=== PATIENT | male | born 1950 | race Caucasian/White ===

== ENCOUNTER 2016-10-02 10:22 | Outpatient (CLI) | payer OTHER ==
[2016-02-23 01:23] VITALS: BMI 25.8
[2016-10-02 10:36] LABS: BILIRUBIN,URINE Negative (NEGATIVE); KETONES,URINE Negative (NEGATIVE); LEUKOCYTE ESTERASE ,URINE Negative (NEGATIVE); NITRITE,URINE Negative (NEGATIVE); PH,URINE 5.5 (5-9); PROTEIN,URINE Trace (NEGATIVE); URINE, BLOOD Negative (NEGATIVE)
[2016-10-02 10:39] LABS: ADD URINE MICROSCOPIC YES
== END 2016-10-02 10:23 | disposition home or self-care (01) ==
LOC: LAB 10:22
PROVIDERS: ATTEND Internal Medicine
DX: R31.9 Hematuria, unspecified (principal); Z85.46 Personal history of malignant neoplasm of prostate
CPT/HCPCS: 81001

== ENCOUNTER 2017-07-08 14:15 | Emergency (ER) ==
[2017-07-08 14:21] VITALS: BP 131/86; TEMP 97.9; BMI 25.9
[2017-07-08] MEDS: DILAUDID 1 MG/ML SYRINGE ONE (19:37)
[2017-07-08] MEDS: IMITREX SUBCUT ONE (19:44)
[2017-07-08] MEDS: IMITREX SUBCUT STA (19:44)
--- NOTE | 2017-07-08 20:10 | ED.PDOC ---
General ED Provider: Dr. CORINNA KEITH Chief Complaint: Headache Stated Complaint: Headache. Persisted for several days. In ER last night and given Dilaudid with minimal releif after failure with Toradol. Came back to ER today for persistent headach. Currently Headache is better Time Seen by Physician: 18:15 Mode of Arrival: Walk-In Information Source: Patient Exam Limitations: No limitations Primary Care Provider: KOTA GARCIA Referred to ED by: PCP Seen Within Last 72 Hours for Same Complaint By: ED Nursing and Triage Documentation Reviewed and Agree: Yes Reviewed sepsis parameters & appropriate labs ordered?: Yes System Inflammatory Response Syndrome: Not Applicable Sepsis Protocol: For patient's 13 years and over: Temp is 96.8 and below OR 101 and greater Pulse >90 BPM Resp >20/minute Acutely Altered Mental Status Are patient's symptoms suggestive of a new infection, such as: -Pneumonia -Skin, Soft Tissue -Endocarditis -UTI -Bone, Joint Infection -Implantable Device -Acute Abdominal Infection -Wound Infection -Meningitis -Blood Stream Catheter Infection -Unknown System Inflammatory Response Syndrome: Not Applicable Neurological Complaint Exam - Headache Complaint/Exam Onset: Gradual (This time following tooth extraction) Symptoms Are: Still present Timing: Constant Episodes Lasting: Hours Worst Headache Ever: No Initial Severity: Moderate Current Severity: Mild Location: Right, Left, Frontal, Temporal Character: Reports: Throbbing, Pressure Aggravating: Reports: Exertion, Position change Alleviating: Reports: Medications, Position change Associated Signs and Symptoms: Reports: Dizziness, Neck pain. Denies: Nausea, Vomiting, Sinus pressure, Neck stiffness, Decreased LOC Related History: Reports: Similar episode Related Surgical History: Reports: None SAH Risk Factors: Reports: None Meningitis Risk Factors: Reports: None SDH Risk Factors: Reports: None Temporal Arteritis Risk Factors: Reports: None Normal Head CT Within Last 12 Months: Yes Temporal Artery Tenderness: Present: None Review of Systems - Review Of Systems Constitutional: Reports: No symptoms Eyes: Reports: Photophobia Ears, Nose, Mouth, Throat: Reports: No symptoms Respiratory: Reports: No symptoms Cardiac: Reports: No symptoms GI: Reports: No symptoms : Reports: No symptoms Musculoskeletal: Reports: Neck pain Skin: Reports: No symptoms Neurological: Reports: Headache Endocrine: Reports: No symptoms Hematologic/Lymphatic: Reports: No symptoms All Other Systems: Reviewed and Negative Past Medical History - Past Medical History Previously Healthy: Yes Endocrine: Reports: Dyslipidemia Cardiovascular: Reports: Hypertension Respiratory: Reports: None Hematological: Reports: None Gastrointestinal: Reports: None Genitourinary: Reports: None Neuro/Psych: Reports: None Musculoskeletal: Reports: None Cancer: Reports: None Other Pertinent Past Medical History: lap to knee, septoplasty, prostectomy - Surgical History General Surgical History: Reports: Orthopedic (lap to knee,), Other (lap to knee , septoplasty, prostectomy ) - Family History Family History: Reports: Unknown (note grand child delivery eminent) - Social History Smoking Status: Never smoker Hx Substance Use: No Alcohol Screening: Occasionally Physical Exam - Physical Exam Appearance: Well-appearing, No pain distress Ill-appearing: None Pain Distress: Mild Eyes: ASPEN, EOMI, Conjunctiva clear ENT: Ears normal, Nose normal, Oropharynx normal Neck: Supple Respiratory: Airway patent, Breath sounds clear Cardiovascular: RRR, Pulses normal, No rub, No murmur GI/: Soft, Nontender, No masses Musculoskeletal: Normal strength, ROM intact, No edema Skin: Warm, Dry, Normal color Neurological: Alert, Oriented Psychiatric: Affect appropriate, Mood appropriate Re-Evaluation - Re-Evaluation Time of Re-Evaluation: 19:30 Status: Improved Vital Signs Stable: Yes Appearance: NAD Lungs: Clear Skin: Warm and Dry Neuro: Alert and Oriented X3 CV: RRR Critical Care Note - Critical Care Note Total Time (mins): 0 Course - Course Orders, Labs, Meds: Orders Category Date Time Status Hydromorphone HCl [Dilaudid 1 mg/ml Syringe] MEDS 07/08/17 19:34 Discontinued 1 mg .ROUTE .STK-MED ONE Sumatriptan Succinate [Imitrex] MEDS 07/08/17 19:34 Discontinued 6 mg SUBCUT .STK-MED ONE Sumatriptan Succinate [Imitrex] MEDS 07/08/17 19:32 Discontinued 6 mg SUBCUT ONCE STA Medications Discontinued Medications Generic Name Dose Route Start Last Admin Trade Name Freq PRN Reason Stop Dose Admin Sumatriptan Succinate 6 mg 07/08/17 19:32 07/08/17 19:44 Imitrex SUBCUT 07/08/17 19:33 6 mg ONCE STA Administration Vital Signs: Temp Pulse Resp BP Pulse Ox 07/08/17 14:16 97.9 F 75 20 131/86 96 Departure - Departure Time of Disposition: 20:00 Disposition: HOME SELF-CARE Discharge Problem: Migraine headache Instructions: Migraine Headache (ED) Condition: Good Pt referred to PMD for follow-up: Yes IPMP verified?: No Prescriptions: Sumatriptan Succinate [Imitrex] 25 mg PO ONCE PRN #10 tablet PRN Reason: Onset migraine Allergies/Adverse Reactions: Allergies morphine Adverse Reaction (Verified 02/23/16 01:38) Penicillins Adverse Reaction (Verified 02/23/16 01:38) Home Medications: Ambulatory Orders Esomeprazole Magnesium [Nexium] 40 mg PO DAILY 04/21/13 Simvastatin [Zocor] 40 mg PO DAILY 04/21/13 Diazepam [Valium] 2 mg PO Q8H PRN 02/23/16 Dimenhydrinate 50 mg PO DAILY PRN 02/23/16 Losartan Potassium [Cozaar] 50 mg PO DAILY 02/23/16 Meclizine HCl [Antivert] 25 mg PO TID #20 tablet 02/23/16 Tramadol HCl [Ultram] 25 mg PO BID PRN 02/23/16 Hydrocodone/Acetaminophen [[place] 5-325 Tablet] 1 tab PO DAILY PRN 07/07/17 Promethazine HCl [Phenergan Tab] 25 mg PO Q6H PRN #15 tablet 07/07/17 Sumatriptan Succinate [Imitrex] 25 mg PO ONCE PRN #10 tablet 07/08/17 Disposition Discussed With: Patient, Family Additional Information: Take meds as directed/ Avoid use of Imitrex and tramadol together. Use Imitrex initially as directed for onset of migraine Follow up with Dr Garcia for further direction and treatment Additional Comments Additional Comments: Discussed alternatives of treatment including use of IMITREX. Agreed to dose here/ After admin had further progressive relief of discomfort. Discharged to home with new script and instructions for use. To avoid concominant use of tramadol
== END 2017-07-08 20:12 | disposition home or self-care (01) ==
LOC: ED 14:15
DX: G43.909 Migraine, unspecified, not intractable, without status migrainosus (principal)
CPT/HCPCS: 96372; 99282

== ENCOUNTER 2018-06-23 07:18 | Day surgery (SDC) ==
[2018-06-23] MEDS ORDERED: LIDOCAINE 1% 20 ML MDV ID STA (08:00)
[2018-06-23] MEDS ORDERED: DIPRIVAN 20 ML VIAL IVP ONE (09:18)
[2018-06-23] MEDS ORDERED: SUBLIMAZE ONE (09:18)
[2018-06-23] MEDS ORDERED: VERSED ONE (09:18)
[2018-06-23 11:03] VITALS: BP 123/66
--- NOTE | 2018-06-24 07:29 | OP ---
INDICATIONS FOR PROCEDURE: 67-year-old gentleman presents for screening colonoscopy. MEDICATIONS: SEE ANESTHESIA NOTES. PROCEDURE: COLONOSCOPY, BIOPSY. REPORT: The risks, benefits, alternatives and limitations were discussed in detail with the patient. Informed consent was obtained. After adequate sedation was achieved, a digital rectal exam revealed good tone, no masses. The colonoscope was introduced into the rectum and advanced under direct visual guidance to the cecum. The cecum was identified by the appendiceal orifice and IC valve. I then slowly withdrew the scope in circumferential manner examining the mucosa quite carefully. I looked on the proximal and distal side of folds and flexures as best as possible. I was able to retroflex the scope in the right colon and the left colon to increase visualization. As I withdrew the scope I noted a small 2 to 3 mm questionable polyp in the descending colon. I removed this completely using a cold biopsy forceps. There was no tissue noted to be remaining. The remaining colon appeared unremarkable including on retroflex view of the anal canal. There was a non engorged hemorrhoidal vein. The prep was good. The withdrawal time was 9 minutes and 52 seconds. The patient tolerated the procedure well with stable vital signs and pulse oximetry throughout. IMPRESSION: 1. QUESTIONABLE DIMINUTIVE POLYP IN THE DESCENDING COLON, REMOVED. RECOMMENDATIONS: 1. High fiber diet. 2. Office visit as needed. 3. Await pathology results. If there is adenomatous tissue then I suggest a surveillance colonoscopy examination again in 5 years. If there is no adenomatous tissue, then I suggest a screening colonoscopy examination again in 10 years. CC: DR. JOSE CANCINO
== END 2018-06-23 10:45 | disposition home or self-care (01) ==
LOC: SURG 07:18
PROVIDERS: ATTEND Internal Medicine Gastroenterology
DX: Z12.11 Encounter for screening for malignant neoplasm of colon (principal); K63.5 Polyp of colon

== ENCOUNTER 2018-06-25 08:52 | Outpatient (CLI) | payer OTHER ==
--- NOTE | 2018-06-25 12:17 | MRI ---
EXAM: MRI brain without and with IV contrast. DATE: 25 June 2018. HISTORY: Brain atrophy vs NPH. TECHNIQUE: Sagittal T1W pre and postcontrast, axial T2W, axial FLAIR, axial T1W pre and postcontrast , axial DWI, coronal T1W postcontrast, and coronal T2W GRE sequences of the brain were obtained using 1.2 Rut magnet. CONTRAST: Omniscan - 14 ml IV. COMPARISON: CT head 07 July 2017. MRI brain 01 February 2016. FINDINGS: The lateral ventricles, temporal tips, third ventricle remained disproportionally large. Transverse dimension across both lateral ventricles is 4.3 cm, compared with 4.1 cm in January 2016. Transverse dimension across the third ventricle is 11.2 mm, compared to 11.2 mm in January 2016. Fo urth ventricle is mildly prominent. Aqueduct of Sylvius is patent. Sylvian fissures, many cerebral sulci and some cerebellar sulci are minimally enlarged. No midline shift, herniation or loculated ex tra-axial fluid collection is apparent. No acute infarct, hemorrhage or enhancing neoplasm is identi fied. No abnormal contrast enhancement is identified in the brain, meninges or dura. Minimal T2W/FL AIR hyperintensity is observed in the white matter abutting each lateral ventricle. The reyna - white matter differentiation is normal. No migration or diverticulation abnormality is identified. The a mygdala, hippocampus, and parahippocampal gyri are similar bilaterally. The 7th/8th cranial nerve co mplexes, cerebellopontine angles, brainstem, and visible cervical spinal cord are normal. There is n o cerebellar tonsillar ectopia. The pituitary gland is small in size, with CSF filling the majority of the pituitary fossa. Corpus callosum is normal in size, but the body is bowed upward due to ventr icular prominence. Vertebral and basilar arteries appear narrow in diameter. Flow voids are present in the major intracranial arteries and in the dural venous sinuses. No aneurysm, AVM or dural venou s sinus thrombosis is apparent. Appearance of the lens of each eye suggests prior cataract surgery. No other orbit abnormality is identified. Right mastoid air cells are unremarkable. Small number o f left posterolateral mastoid air cells demonstrate T2W bright, T1W intermediate signal and mild enha ncement. There is no acute sinusitis. No neck mass or lymphadenopathy is detected. No calvarial ne oplasm or acute fracture is evident. IMPRESSIONS: 1. No acute infarct, hemorrhage, or enhancing neoplasm. 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 3. Minor cerebral leukomalacia - likely small vessel disease. 4. Small pituitary gland. No pituitary lesion. 5. Minor left mastoiditis - new since January 2016. 6. Narrow vertebrobasilar arterial system. Correlate for vertebrobasilar insufficiency symptoms.
== END 2018-06-25 08:53 | disposition home or self-care (01) ==
LOC: RAD 08:52
PROVIDERS: ATTEND Internal Medicine
DX: R42 Dizziness and giddiness (principal); R41.3 Other amnesia